=== PATIENT | male | born 1980 | race Caucasian/White ===

== ENCOUNTER 2018-05-25 14:00 | Emergency (ER) | payer OTHER ==
[2018-05-25 14:13] VITALS: BP 123/74
--- NOTE | 2018-05-25 14:33 | EDPHY ---
H & P Time Seen by Provider: 05/25/18 14:20 HPI/ROS: CHIEF COMPLAINT: Left knee pain History by patient HISTORY OF PRESENT ILLNESS: 37-year-old man with no significant past medical history presents complaining of left knee pain and feeling a pop while he was snowboarding and fell. Patient has a dense left foot secured in the snow boarding was skating with his right foot when he caught an edge and fell over to his left side stressing the knee on the medial side and feeling tear. Did not swell up immediately and he feels that there is minimal swelling currently. This happened about 4 hr prior to arrival. It is painful to walk but he is able to weight bear. He localizes the pain to his left knee medial joint line/ tibial tubercle. REVIEW OF SYSTEMS: As in HPI, and all other systems reviewed and are negative Smoking Status: Current some day smoker Physical Exam: General Appearance: Alert and no distress. Head: Normocephalic, atraumatic Eyes: Pupils equal and round no injection. Extraocular movements are intact. Musculoskeletal: Neck is supple and nontender. Extremities: Left knee with no bruising or deformity, with minimal swelling mostly on medial side, positive tenderness along the medial joint line. No patellar tenderness, no lateral tenderness. Full range of motion actively and passively. Positive pain with valgus stress. No obvious ligamental laxity. DP pulses 2+ equal to right. Distal sensation is intact. Skin: No rashes or lesions except as described above. Constitutional: Initial Vital Signs Heart Rate 94 05/25/18 14:09 Respiratory Rate 16 05/25/18 14:09 Blood Pressure 123/74 H 05/25/18 14:09 O2 Sat (%) 93 05/25/18 14:09 O2 Delivery Mode Room Air Allergies/Adverse Reactions: No Known Allergies Allergy (Verified 05/25/18 14:07) Home Medications: Medication Instructions Recorded NK [No Known Home Meds] 05/25/18 MDM/Departure - [facility] ED Course/Re-evaluation: 37-year-old man presents with left medial knee pain after snowboarding injury and hearing a pop. Patient is tender in the medial joint line in area over his medial collateral ligament but there is no evidence of joint instability at this time. Patient declined an x-ray. I recommending follow-up with Orthopedics and conservative treatment with ice and ibuprofen and weight- bearing as tolerated and no soccer or other activities will put stress on the painful area. I discussed this with the patient his . They understand and are agreeable to this plan. - Depart Disposition: Home, Routine, Self-Care Clinical Impression: Injury of knee, left Qualifiers: Encounter type: initial encounter Qualified Code(s): S89.92XA - Unspecified injury of left lower leg, initial encounter Condition: Good Instructions: Knee Pain (ED) Additional Instructions: You were seen by Dr. Leslie Garrett today. I suspect you have strained or sprained her medial collateral ligament of your knee. I recommend ibuprofen and/or Tylenol as needed for pain. I recommend icing the knee every 20 min on and off for the next 24-48 hours. You may put as much weight on it as you can tolerate. Avoid activities such as soccer and snowboarding that will cause lateral medial stress on the knee. Please follow-up follow-up with orthopedic surgeon, Dr. Perez, if your symptoms do not resolve within a week. Return for any worsening or new concerns. Referrals: NONE *PRIMARY CARE P,. [Primary Care Provider] - As per Instructions Ceferino Perez MD [Medical Doctor] - As per Instructions
== END 2018-05-25 14:40 | disposition home or self-care (01) ==
LOC: CED 14:00
DX: S89.92XA Unspecified injury of left lower leg, initial encounter (principal); V00.311A Fall from snowboard, initial encounter; Y93.23 Activity, snow (alpine) (downhill) skiing, snowboarding, sledding, tobogganing and snow tubing; Y92.9 Unspecified place or not applicable; Y99.9 Unspecified external cause status
CPT/HCPCS: 99282-ER